=== PATIENT | female | born 1965 | race Caucasian/White ===

== ENCOUNTER 2016-08-16 15:15 | Outpatient (CLI) | payer OTHER | END 2016-08-16 15:16 | disposition home or self-care (01) | LOC: LABHHL 15:15 | PROVIDERS: ATTEND Internal Medicine Gastroenterology | DX: K21.9 Gastro-esophageal reflux disease without esophagitis (principal); K92.0 Hematemesis; K30 Functional dyspepsia; R05 Cough | CPT/HCPCS: 88305; 88342 ==

== ENCOUNTER 2017-08-08 08:05 | Day surgery (SDC) | payer OTHER ==
--- NOTE | 2017-08-08 11:02 | Short Stay Summary ---
Short Stay Documentation Date of service: 08/08/17 - History Principal diagnosis: right thyroid nodule H&P: obtained from office - Allergies and Medications Current Medications: Allergies No Known Allergies Allergy (Verified 08/08/17 08:36) Home Medications Medication Instructions Recorded Confirmed Last Taken Type No Known Home Medications [No 08/08/17 08/08/17 Unknown History Reported Home Medications] - Physical exam General appearance: no acute distress HEENT: Atraumatic, Mucous membr. moist/pink - Brief post op/procedure progress note Date of procedure: 08/08/17 Pre-op diagnosis: right thyroid nodule Post-op diagnosis: same Procedure: US thyroid FNA Anesthesia: local Surgeon: SENAIT MENDES Estimated blood loss: none Pathology: list (FNA x 4) Specimen disposition: to lab Condition: stable - Disposition Condition at discharge: Good Disposition: [id number] TO HOME OR SELFCARE Short Stay Discharge Plan Follow up with: BECCA RICCI MD [Primary Care Provider] - 7 Days
[2017-08-08 11:04] VITALS: BP 150/91
--- NOTE | 2017-08-08 11:42 | Ultrasound Report ---
ULTRASOUND BIOPSY THYROID History: Right thyroid nodule. Description of procedure: Informed consent was obtained. Sterile technique was utilized. Using ultrasound guidance, 4 fine needle aspirations were obtained from approximate 1.5 cm nodule in the mid right thyroid lobe. The samples were deemed adequate by the pathologist on site. No complications. Impression: Successful ultrasound-guided biopsy of a right thyroid lobe nodule as described.
== END 2017-08-08 11:30 | disposition home or self-care (01) ==
LOC: CATHLABREC 08:05 → EDSTATUS 09:00 → CATHLABREC 11:30
PROVIDERS: ATTEND Surgery
DX: E04.1 Nontoxic single thyroid nodule (principal)
CPT/HCPCS: 10022; 60100; 76942; 88112; 88172; 88173; 88177; 88305